=== PATIENT | male | born 1990 | race Two or more races ===

== ENCOUNTER 2019-11-25 17:25 | Emergency (ER) | payer MEDICAID, OTHER ==
[~2019-11-25] VITALS: Ht 177.8 cm; Wt 90.7 kg
[2019-11-25 19:03] VITALS: BP 118/76
[2019-11-25] MEDS ORDERED: LIDOCAINE 1% HCL (LOCAL ANESTH.) INJ 20ML MDV IJ ONE (19:30)
[2019-11-25] MEDS ORDERED: TETANUS-DIPTH-ACEL PERTUSSIS 0.5ML SYR Tdap IM ONE (20:00)
== END 2019-11-25 20:41 | disposition home or self-care (01) ==
LOC: EDBD 17:25 → ER 17:25
DX: S61.215A Laceration without foreign body of left ring finger without damage to nail, initial encounter (principal); M79.645 Pain in left finger(s); W26.8XXA Contact with other sharp object(s), not elsewhere classified, initial encounter; Y93.89 Activity, other specified; Y92.89 Other specified places as the place of occurrence of the external cause; Y99.8 Other external cause status
CPT/HCPCS: 12002; 29130; 90471; 90715